=== PATIENT | female | born 1955 ===

== ENCOUNTER 2025-02-01 07:07 | Day surgery (SDC) | payer OTHER ==
[2025-02-01] MEDS ORDERED: fentaNYL CITRATE 50 MCG/ML AMPUL IV PUSH ONE (12:15)
[2025-02-01] MEDS ORDERED: DIPHENHYDRAMINE HCL 50 MG/ML VIAL 1ML IV ONE (12:15)
[2025-02-01] MEDS ORDERED: MIDAZOLAM HCL 2 MG/2 ML VIAL IV ONE (12:15)
== END 2025-02-01 13:10 | disposition home or self-care (01) ==
LOC: AMB-ENDOS 07:07 → EDBD 13:30
PROVIDERS: ATTEND Internal Medicine
DX: D12.5 Benign neoplasm of sigmoid colon (principal); K63.5 Polyp of colon; Z86.0101 Personal history of adenomatous and serrated colon polyps